=== PATIENT | male | born 1975 | race Two or more races ===

== ENCOUNTER → 2024-08-07 | Outpatient (CLI) | payer MEDICAID, SELFPAY ==
--- NOTE | 2024-08-07 10:30 | XR_ITS ---
Examination: Transrectal prostate sonography TECHNIQUE: Grayscale transrectal sonographic images prostate Exam date and time: August 07, 2024 1056 hours INDICATIONS: Frequent urination beginning 2 months ago FINDINGS: Prostate 3.3 x 1.5 x 4.1 cm volume 10.5 cc No prostate nodules IMPRESSION: Negative for prostate nodules Negative for prostatomegaly
== END | disposition home or self-care (01) ==
PROVIDERS: PCP Physician Assistant; Referring Provider Physician Assistant; Visit Provider Physician Assistant
DX: N40.0 Benign prostatic hyperplasia without lower urinary tract symptoms (principal)
CPT/HCPCS: 76872